=== PATIENT | female | born 1950 | race Caucasian/White ===

== ENCOUNTER 2021-04-07 14:15 | Inpatient (IN) | payer MEDICARE ==
[2021-04-07] VITALS (7 sets, daily range): BP systolic 113–127; BP diastolic 64–74
[~2021-04-07] VITALS: Ht 172.7 cm; Wt 78.9 kg
[2021-04-07 16:57] LABS: BASOPHILS 0.2 % (0.0-2.0); EOSINOPHILS 0.6 % (0.0-3.0); HEMATOCRIT 29.8 % (37.0-47.0); HEMOGLOBIN 10.2 gm/dL (12.0-15.0); LYMPHOCYTES 25.1 % (24.0-44.0); MCHC 34.2 g/dL (28.0-37.0); MCV 84.7 fL (80.0-100.0); MONOCYTES 7.2 % (1.0-8.0); PLATELET COUNT 433 thou/uL (150-400); POLYS 66.9 % (36.0-66.0); RBC 3.52 mil/uL (4.20-5.00); WBC 6.1 thou/uL (4.0-11.0)
[2021-04-07 17:10] LABS: CALCIUM 10.1 mg/dL (8.5-10.1); CREATININE 0.8 mg/dL (0.6-1.0); POTASSIUM 3.9 mmol/L (3.5-5.1)
[2021-04-07 17:15] LABS: ALBUMIN 3.3 g/dL (3.4-5.0); TOTAL BILIRUBIN 0.3 mg/dL (0.2-1.0); TOTAL PROTEIN 7.1 g/dL (6.4-8.2)
[2021-04-07 17:36] LABS: APTT 29.2 Seconds (24.5-32.8); INR 1.1; PROTIME 11.8 Seconds (9.3-11.4)
--- NOTE | 2021-04-07 23:11 | NUR ---
REPORT CALLED TO ISHAN PENG
--- NOTE | 2021-04-07 23:45 | NUR ---
Pt. admitted to the unit from the emergency room accompanied by staff. She is alert and oriented. Admission assessment and history is completed. Up to the bedside comode with assitance of one.
--- NOTE | 2021-04-08 01:39 | NUR ---
Pt. given morphine for c/o pain to the left lower extremity with no pain relief. This nurse informed patient that the Dr. could be called if no pain relief. She did not want that. Assessment done of the left lower leg, but patient refused for this nurse to measure the depth of the wounds. Dressing applied to left lower leg.
[2021-04-08] MEDS ORDERED: LOPRESSOR50 MG PO (03:42)
[2021-04-08] MEDS ORDERED: XARELTO20 MG PO (03:43)
[2021-04-08] MEDS ORDERED: LISINOPRIL-HCT1 EAC1 PO (03:45)
[2021-04-08] MEDS ORDERED: ZETIA10 MG PO (03:45)
[2021-04-08] MEDS ORDERED: ASPIRIN EC81 M1 PO (03:47)
[2021-04-08] MEDS ORDERED: FEMARA2.5 MG PO (03:49)
[2021-04-08 06:25] LABS: HEMATOCRIT 27.6 % (37.0-47.0); HEMOGLOBIN 9.1 gm/dL (12.0-15.0); MCH 28.6 pg (26.0-34.0); MCV 86.9 fL (80.0-100.0); RBC 3.18 mil/uL (4.20-5.00); RDW 15.5 % (10.5-14.5); WBC 6.8 thou/uL (4.0-11.0)
[2021-04-08 06:55] LABS: CALCIUM 8.7 mg/dL (8.5-10.1); CREATININE 0.7 mg/dL (0.6-1.0); POTASSIUM 3.5 mmol/L (3.5-5.1)
[2021-04-08 08:38] VITALS: BP 150/84
--- NOTE | 2021-04-08 11:23 | NUR ---
CARE TAKEN OVER FOR PATIENT AT 7AM, PATIENT RESTLESS IN BED UNABLE TO GET COMFORTABLE. VS WITHIN NORMAL LIMITS AND EDUCATED THAT NEXT PAIN MEDICATIONS WOULD BE AVAILABLE AT 930. NOT COMPLAINTS OR CONCERNS AT THIS TIME. FLUIDS D/C PER ORDER AND AFTER DOSE OF PAIN MEDICATION PATIENT IS NOW QUIETLY RESTING IN BED.
--- NOTE | 2021-04-08 12:10 | NUR ---
WOUND DRESSING CHANGED ON LEFT CALF. PATIENT TOLERATED EVENT PAIN 4/10 BEFORE BEGINING AND 6/10 AFTER. LIDOCAINE JELLY PLACED INSIDE THE WOUND BED, THEN XEROFORM, ABD AND KIRLEX BEFORE BEING SECURED WITH TAPE. PATIENT STATES SHE IS READY FOR PAIN MEDICATION WHEN IT IS AVAILABLE.
[2021-04-08 17:02] VITALS: BP 149/86
[2021-04-08 19:21] VITALS: BP 124/66
--- NOTE | 2021-04-09 03:01 | NUR ---
ASSUMED PT CARE THIS PM. PT IS ALERT AND ORIENTED X4. WOUND DRSG COMPLETED WHICH WAS WELL TOLERATED BY PT. PT WAS INFORMED OF BEING NPO AT MIDNIGHT AND VERBALIZED UNDERSTANDING. MEDS WERE GIVEN PER EMAR ORDERS. PT DID NOT VERBALIZE ANY CONCERNS. FALL PRECAUTIONS IN PLACE. WILL CONTINUE TO MONITOR.
[2021-04-09 07:12] LABS: GLYCOHEMOGLOBIN (HGB A1C) 5.4 % (4.8-5.6)
--- NOTE | 2021-04-09 07:45 | HC ---
[facility] [place] [address] CONSULTATION Name: SRINIVASA CUEVAS Room #: 439-P ADM IN M.R.#: [id number] Admission: 04/07/21 Attend Phys: Gerry Monterroso Discharge: Date of : 50 Report #: [id number] THIS REPORT FOR: cc: Esau Mcneil MD, Jeffrey W. MD Barry, Joseph W. MD ~ DATE OF SERVICE: 04/08/2021 INFECTIOUS DISEASE CONSULTATION ATTENDING PHYSICIAN: Dr. Monterroso. REASON FOR EVALUATION: Left lower extremity inflammatory eruption, complicated by wounds, likely skin and soft tissue infection in the setting of ischemic lower extremity. HISTORY OF PRESENT ILLNESS: Chart reviewed. The patient was examined. This is a 70-year-old woman with known history of vasculopathy including peripheral vascular disease, who has undergone previous procedures and developed a wound, she states roughly a year ago, left lower extremity; however, since 02/17 has significant increase in her pain and discomfort. Did undergo what sounds like a balloon angioplasty involving vessels in left lower extremity, [facility] ____ progression. She is admitted now for more definitive treatment including surgical debridement, IV antibiotics. She notes the pain is severe. She is not aware of systemic illness in terms of fevers, chills. Appetite has been diminished overall, but she attributed that to her age. Denies any pulmonary or gastrointestinal related complaints. She was empirically started on combination therapy with Zosyn and vancomycin. She is tentatively scheduled to undergo operative debridement today. ALLERGIES: Listed include CONTRAST DYE, IRON, SULFA. MEDICATIONS: Currently include Zosyn, famotidine, ipratropium/albuterol inhaler, acetaminophen, ondansetron, vancomycin, morphine as needed. PAST MEDICAL HISTORY: As described above, has known vasculopathy, peripheral vascular disease, coronary artery disease, previous stents. The patient has history of DVTs with PE, peripheral neuropathy and history of breast cancer with radiation. SOCIAL HISTORY: Nonsmoker, although had 50-jcyn-yums history of smoking. No illicit drug use. FAMILY HISTORY: Noncontributory. REVIEW OF SYSTEMS: Otherwise, as noted above. [facility] [address] [place] [address] CONSULTATION Name: SRINIVASA CUEVAS Room #: 439-P [facility] IN M.R.#: [id number] Admission: 04/07/21 Attend Phys: Gerry Monterroso Discharge: Date of : 50 Report #: [id number] PHYSICAL EXAMINATION: GENERAL: She appears ill. She is in moderate to marked distress secondary to the pain at this point. She is generally lucid and undernourished. VITAL SIGNS: Temperature 98.7, pulse 100, respirations 19, blood pressure 150/84. SKIN: Warm, dry, no rashes. HEENT: Normocephalic. Extraocular muscles intact. NECK: Supple. LUNGS: Diminished breath sounds. Few crackles at the bases. HEART: Regular. Does have a soft systolic murmur. ABDOMEN: Mildly distended, somewhat firm, nontender. EXTREMITIES: Left lower extremity, limited exam due to her severe pain. Clearly has ischemic type changes distally with the edema. There is a dressing over the proximal leg, site of the ulcer of the foot itself. There is no wound. GENITOURINARY AND RECTAL: Deferred. LABORATORY DATA: Wound culture in progress. Gram stain did show few gram-positive cocci and gram-negative rods, few white cells. CBC: White count of 6.8, H and H 9.1 and 27.6, platelets of 367. Electrolytes: Sodium 138, potassium 3.5, chloride 104, bicarbonate is 24, anion gap of 10, BUN and creatinine 15 and 0.7. Blood culture is sterile thus far. Sed rate of 68. Coronavirus testing was negative. Lactic acid 1.7. CRP of 55.9. Liver function tests, otherwise, unremarkable. Albumin of 3.3, total protein 7.1. ASSESSMENT AND PLAN: Left lower extremity chronic ulceration with acute worsening. This is likely multifactorial in etiology, certainly can exclude a complicating skin and soft tissue infection at this point. She is not overtly toxic, lack of systemic signs and symptoms ____ absence of sepsis at this point. Continue local wound care. We will follow postoperatively. Broad-spectrum antimicrobial therapy, presuming a polymicrobial etiology. ____ monitor expectantly. She is at risk for additional complications. <ELECTRONICALLY SIGNED> By: Issa Carr MD 04/09/21 0745 [id number] Issa Carr MD /nt
[2021-04-09 08:08] VITALS: BP 140/77
--- NOTE | 2021-04-09 11:26 | NUR ---
Assess due to RD consult received. Pt has surgical wound left leg which will require debridement. Upon visit, pt on phone but paused for brief conversation. States appetite is good. Usual wt 168 lb at home, bedscale wt showing 174 lb. ate 75-100% last evening. Presents low nutrition risk
--- NOTE | 2021-04-09 15:11 | NUR ---
PATIENT REFUSING TO ALLOW PACKING WITH XERFORM DURING DRESSING CHANGE. ALSO INFORMED ME THAT YESTERDAY AFTER MY SHIFT CHANGE PATIENT HAD TAKEN DOWN OWN DRESSING AND REMOVED IT BEFORE REWRAPPING IT WITH SAME KIRLEX BEFORE.
[2021-04-09 16:20] VITALS: BP 123/78
--- NOTE | 2021-04-09 17:50 | NUR ---
Met with patient. She resides at home with spouse in independnt home. She reports all needs on one level. She admitted from wound care clinic with wound in foot. Patient wants a praffo boot for home. She has [facility] at home. Patient was working until Feb. She reports she still has a job. Patient reports HH RN,PT,OT at home. will upate care.
[2021-04-09 19:53] VITALS: BP 121/67
--- NOTE | 2021-04-10 04:59 | NUR ---
RECEIVED CARE OF THIS PATIENT AT 1900. PATIENT ALERT AND ORIENTED X4. US OF LOWER EXT DONE. LLE SHOWED NO VASCUALR BLOOD FLOW. Len PEÑA NP WAS NOTIFIED BY [employer]. THIS NURSE NOTIFIED DR PALMA OF RESULTS. WANTED TO KNOW IF THE LLE WAS WARM OR COLD. WENT TO CHECK THE TEMP OF BOTH LEGS AND THEY WERE THE SAME. DR PALMA, Len PEÑA NP AND PACKAGE WRAPPER WAS NOTIFIED OF THE RESULTS. Len PEÑA NP AND PACKAGE WRAPPER WAS ADVISED OF WHAT DR PALMA SAID. DRESSING WAS CHANGED, HAD SMALL AMOUNT SS DRAINAGE. C.O PAIN, MED WAS GIVEN. SLEPT OFF AND ON THIS SHIFT.
[2021-04-10 07:40] VITALS: BP 134/68
--- NOTE | 2021-04-10 08:15 | NUR ---
ASSUMED CARE OF PATIENT THIS MORNING. WAS TOLD IN REPORT THAT DRESSING CHANGE OCCURED HS. RN INFORMED ME THAT SHE USED COBAN OVER KIRLEX TO "BETTER HOLD DRESSING IN PLACE." ASKED HER IF DRESSING ORDER HAD BEEN CHANGED AND AFTER REVIEWING ORDERS THE WOUND DRESSING IS STILL SAME, KIRLEX SECURED WITH TAPE. PLAN TO REDO DRESSING THIS AM DO TO PATIENT HAVING VASCULAR ISSUES IN THAT LEG AND COBAN BEING NOT IN ORDER. PATIENT RESTING COMFORTABLY WITH EYES CLOSED AND HAS BEEN NPO SINCE 0000. WILL ASK IF PO MEDICATIONS WILL NEED TO BE GIVEN THIS AM OR IF IT IS OKAY TO HOLD.
[2021-04-10 14:44] VITALS: BP 134/68
[2021-04-10 20:03] VITALS: BP 106/62
--- NOTE | 2021-04-11 07:31 | NUR ---
RECEIVED CARE OF THIS PATIENT AT 1900. PATIENT ALERT AND ORIENTED X4. UP WITH ASSIST, GATEBELT AND WALKER. HAS WOUND ON LLE WITHDRESSING THAT D/I. HAS BEEN NPO FOR A PROCEDURE THIS AM. C/O PAIN, MED GIVEN. SLEPT OFF AND ON DURING NIGHT.
[2021-04-11 08:16] VITALS: BP 124/64
[2021-04-11 15:45] VITALS: BP 107/66
--- NOTE | 2021-04-11 17:44 | NUR ---
Homer will be here throught weekend. Had sx today.
[2021-04-11 20:14] VITALS: BP 110/57
[2021-04-12 05:49] LABS: CALCIUM 8.8 mg/dL (8.5-10.1); CREATININE 0.8 mg/dL (0.6-1.0); POTASSIUM 4.2 mmol/L (3.5-5.1)
--- NOTE | 2021-04-12 06:27 | NUR ---
PATIENT AOX4 MAKES NEEDS KNOWN. PAIN CONTROLLED THIS SHIFT. PATIENT DRESSING ON LLE IS C/D/I. PATIENT ENCOURAGED TO ELEVATE BLE. FALL PRECAUTION IN PLACE. PATIENT IN BED ASLEEP AT THIS TIME BREATHING REGULAR AND UNLABOURED.
[2021-04-12 07:50] VITALS: BP 129/68
--- NOTE | 2021-04-12 09:06 | NUR ---
AFTER ASSUMING CARE OF PATIENT THIS AM PATIENT WAS VERY CONCERED WITH WHEN SHE WAS GOING TO BE RESTARTED ANTICOAGULATION THERAPY. SHE STATES "SHES CLOTTS VERY EASILY." NO COMPLAINTS OF PAIN AT THIS TIME. IV IN WORKING CONDITION WITH ANTIBOTICCS TRANSFUSING. PATIENT IS CONCERED IF SHE GOES HOME TODAY THAT HER PAIN MEDICATION THAT SHE HAS AT HOME WONT BE STRONG ENOUGH. ASKED IF SHE COULD MAYBE JUST RECIEVE A HIGHER DOSAGE OF HYDROCONE ON DISCHARGE.
[2021-04-12 16:32] VITALS: BP 134/68
--- NOTE | 2021-04-12 21:18 | O ---
[facility] [place] [address] [place] [address] OPERATIVE REPORT Name: SRINIVASA CUEVAS Room #: 439-P [facility] IN M.R.#: [id number] Admission: 04/07/21 Attend Phys: Gerry Monterroso Discharge: Date of : 50 Report #: [id number] THIS REPORT FOR: cc: Esau Mcneil MD, Jeffrey W. MD Soliman,Tee Gallardo MD [facility] ~ DATE OF SERVICE: 04/11/2021 PREOPERATIVE DIAGNOSIS: Nonhealing postsurgical wound of the left lower extremity after revascularization. POSTOPERATIVE DIAGNOSIS: Nonhealing postsurgical wound of the left lower extremity after revascularization. PROCEDURE PERFORMED: Excisional debridement of skin, subcutaneous tissue, muscle and fascia of a nonhealing postsurgical left lower extremity wound, ultimately measuring 23.5 x 6 cm in dimension (141 square centimeters). Preoperative wound measurements showed 2 separate discrete wounds, measuring 4 x 2 cm and 12 x 4 cm with a tunneled skin bridge between them and undermining circumferentially with necrosis. SURGEON: Tee Hall MD CHILD SUPPORT AGENT: None. ANESTHESIA: General endotracheal anesthesia. ESTIMATED BLOOD LOSS: 10 mL. COMPLICATIONS: None appreciated. SPECIMENS: All debrided tissue to pathology. INDICATIONS: The patient is a 70-year-old -[place] female with a history of undergoing a left lower extremity revascularization procedure and now shows evidence of a nonhealing postsurgical wound with significant purulent drainage and slough throughout. There was a skin bridge connecting 2 open wounds with significant tunneling under the skin bridge and with overt necrosis and slough from the bed of the wound, indication was for debridement today. DESCRIPTION OF PROCEDURE: After explaining the risks, benefits and alternatives of the procedure with the patient in detail and obtaining consent, the patient was brought to the operating room and placed supine on the operating room table. After conducting a thorough timeout procedure, verifying correct patient and procedure, the patient was given general endotracheal anesthesia. Once adequate anesthesia was obtained, her left lower extremity was circumferentially prepped [address] [address] OPERATIVE REPORT Name: MASONSRINIVASA Room #: 439-P [facility] IN M.R.#: [id number] Admission: 04/07/21 Attend Phys: Gerry Monterroso Discharge: Date of : 50 Report #: [id number] and draped in the standard surgical sterile fashion from toes to groin and was draped with an extremity drape and a stockinette for the foot. Electrocautery was now used to circumferentially debrided all nonviable skin, subcutaneous tissue, and muscle/fascia from the entirety of the wound and carried down to the bed of the wound. The contrib.comonix ultrasonic debridement tool was now used to remove all remaining nonviable tissue, slough and biofilm from the entirety of the wound. Hemostasis was obtained with electrocautery and manual pressure. If this did not appear appropriate for skin substitute application today and as such, the wound was then packed tightly with sterile saline soaked Kerlix gauze, dressed with 4 x 4's, ABDs and Medipore tape completing the procedure. At the end of the procedure, all instrument, needle and sponge counts were correct. The patient tolerated the procedure without incident, was awakened in the operating room and transitioned to the recovery room in stable condition with no apparent complications. <ELECTRONICALLY SIGNED> By: Tee Hall MD, FACS 04/12/21 2118 [id number] Tee Hall MD, FACS /nt
--- NOTE | 2021-04-12 21:18 | HC ---
[facility] [place] [address] CONSULTATION Name: SRINIVASA CUEVAS Room #: 439-P [facility] IN M.R.#: [id number] Admission: 04/07/21 Attend Phys: Gerry Monterroso Discharge: Date of : 50 Report #: [id number] THIS REPORT FOR: cc: Esau Mcneil MD, Jeffrey W. MD Soliman,Tee Gallardo MD [facility] ~ DATE OF SERVICE: 04/07/2021 GENERAL SURGERY CONSULT REFERRING PHYSICIAN: Dr. Alexis Zhu. REASON FOR CONSULTATION: Nonhealing left lower extremity postsurgical wound. HISTORY OF PRESENT ILLNESS: The patient is a 70-year-old -[place] female who underwent a left lower extremity revascularization procedure by Dr. Emiliano Mcneil one year ago. The patient has had ongoing nonhealing wounds to the left lower extremity with recurrent infection, DVTs and is now on chronic anticoagulation. The patient was seeing Dr. Zhu in the office and she was so exquisitely tender that she has been admitted for ongoing wound care and full evaluation. As she has extensive nonhealing wounds with slough necrosis and periwound erythema, I have been asked to evaluate for debridement. PAST MEDICAL HISTORY: DVTs, PEs, left lower extremity wound, neuropathy, breast cancer, peripheral vascular disease and coronary artery disease, status post stenting. HOME MEDICATIONS: Metoprolol, Xarelto, lisinopril, hydrochlorothiazide, Zetia, aspirin and Femara. ALLERGIES: IV CONTRAST DYE, IRON, AND SULFA. SOCIAL HISTORY: Denies alcohol, tobacco or illicit drugs. FAMILY HISTORY: Reviewed and noncontributory. REVIEW OF SYSTEMS: GENERAL. The patient denies nocturnal fevers or chills. HEENT: No change in vision, change in hearing. NECK: No swelling or difficulty swallowing. HEART: No chest pain, palpitations. LUNGS: No cough or shortness of breath. GASTROINTESTINAL: No nausea, no vomiting. GENITOURINARY: No dysuria, hematuria. ENDOCRINE: No polyuria, polydipsia. HEMATOLOGIC: No history of bleeding or easy bruising. [facility] [address] [place] [address] CONSULTATION Name: MASONSRINIVASA Room #: 439-P [facility] IN M.R.#: [id number] Admission: 04/07/21 Attend Phys: Gerry Monterroso Discharge: Date of : 50 Report #: [id number] EXTREMITIES: No history of weakness or limited range of motion. NEUROLOGIC: No history of syncope or near syncopal episodes. PSYCHIATRIC: No history of anxiety or depression. SKIN AND INTEGUMENT: Significant history of longstanding nonhealing left lower extremity wounds. PHYSICAL EXAMINATION: VITAL SIGNS: Temperature 36.5, pulse 75, respirations 18, blood pressure 113/64. GENERAL: Alert, no acute distress. HEENT: Normocephalic, atraumatic. Pupils equal, round, reactive to light. NECK: Supple, without lymphadenopathy. Trachea midline. HEART: Regular rate and rhythm. LUNGS: Clear to auscultation bilaterally. ABDOMEN: Soft, nontender, nondistended, positive bowel sounds. GENITOURINARY: Normal external female genitalia. EXTREMITIES: No clubbing, cyanosis or edema. NEUROLOGICAL: Cranial nerves II-XII are grossly intact. PSYCHIATRIC: Normal mood and affect. SKIN AND INTEGUMENT: Two areas of nonhealing wound to the left lower extremity. They were both opened with slough, fibrinous exudate and necrosis. I was unable to see if the skin bridge has tunneling underneath it as the patient has exquisite tenderness. LABORATORY DATA: CBC shows white blood cell count 6.1 thousand, hemoglobin 10.2, platelets 433,000. Creatinine 0.8, albumin is 3.3. INR 1.1. ASSESSMENT AND PLAN: A 70-year-old -[place] female with a 1-year history of a nonhealing left lower extremity wound after undergoing revascularization procedure, who is now in need of debridement and Interventional Radiology assistance for possible angiogram and/or stenting. At this time, I recommend holding her Xarelto. As she has been on this up to today, we will not proceed to the operating room for debridement until at least 72 hours have passed to limit any bleeding potential. In the meantime, I recommend Interventional Radiology with Dr. Peng for assessment of the possibility of any intervention as needed per his recommendation. For now, continue ongoing local wound care, antibiotics per Infectious Disease and optimizing nutritional status. I sincerely appreciate this consult. We will follow along and leave any further recommendations in the patient's chart as appropriate. <ELECTRONICALLY SIGNED> By: Tee Hall MD, FACS 04/12/21 2118 [id number] Tee Hall MD, FACS /nt
[2021-04-13 05:19] LABS: HEMATOCRIT 27.6 % (37.0-47.0); HEMOGLOBIN 8.9 gm/dL (12.0-15.0); MCH 27.7 pg (26.0-34.0); MCHC 32.1 g/dL (28.0-37.0); MCV 86.2 fL (80.0-100.0); RBC 3.2 mil/uL (4.20-5.00); WBC 6.6 thou/uL (4.0-11.0)
[2021-04-13 05:33] LABS: ALBUMIN 2.2 g/dL (3.4-5.0); CALCIUM 8.4 mg/dL (8.5-10.1); CREATININE 0.8 mg/dL (0.6-1.0); PHOSPHORUS 3.3 mg/dL (2.5-4.9); POTASSIUM 3.3 mmol/L (3.5-5.1)
[2021-04-13 07:50] VITALS: BP 141/78
--- NOTE | 2021-04-13 08:21 | NUR ---
PT LYING IN BED. VOIDING PER BEDPAN. OXY IR PROVIDING PAIN RELIEF. RESTING COMFORTABLY. NO NEEDS VOICED. CALL LIGHT WITHIN REACH. FREQUENT OBSERVTION.
[2021-04-13 16:55] VITALS: BP 131/72
[2021-04-13 20:10] VITALS: BP 150/73
[2021-04-14 07:58] VITALS: BP 140/89
--- NOTE | 2021-04-14 08:27 | NUR ---
PT LYING IN BED. VOIDING PER BEDPAN. OXY IR PROVIDING PAIN RELIEF. RESTING COMFORTABLY. NO NEEDS VOICED. CALL LIGHT WITHIN REACH. FREQUENT OBSERVATION.
--- NOTE | 2021-04-14 09:06 | NUR ---
ASSUMED CARE OF PATIENT THIS AM. PATIENT TRANSFERED TO CHAIR WITH WALKER SETTING UP FOR BREAKFAST. PT ASKED ABOUT IF POSSIBLY BEING ABLE TO GO HOME WITH WOUNDVAC FOR HER LEG. NO C/O PAIN AT THIS TIME AND NOTHING IS NEEDED.
[2021-04-14] MEDS ORDERED: CEFDINIR300 MG PO (12:26)
[2021-04-14] MEDS ORDERED: LINEZOLID600 MG PO (12:26)
[2021-04-14] MEDS ORDERED: ELIQUIS5 MG PO (12:27)
[2021-04-14] MEDS ORDERED: GABAPENTIN 100100 MG PO (12:27)
[2021-04-14 13:00] VITALS: BP 134/68
--- NOTE | 2021-04-14 16:56 | NUR ---
Patient to dc home with care. [facility]axed orders to [facility]. Updated [facility] patient will need wound vac. Patient to f/u with outpatient wound clinic and they will order. No further needs
== END 2021-04-14 13:30 | disposition home health service (06) | DRG 579 ==
LOC: ER 14:15 → EROBS 18:30 → 4S 18:30 → 4W 04-10 04:48 → 4S 04-10 04:59
PROVIDERS: Emergency Medicine; Nurse Practitioner Family; Specialist; ADMIT Hospitalist; ATTEND Hospitalist
DX: S81.802A Unspecified open wound, left lower leg, initial encounter (principal); E43 Unspecified severe protein-calorie malnutrition; L97.929 Non-pressure chronic ulcer of unspecified part of left lower leg with unspecified severity; I73.9 Peripheral vascular disease, unspecified; Z20.822 Contact with and (suspected) exposure to COVID-19; I25.10 Atherosclerotic heart disease of native coronary artery without angina pectoris; R73.9 Hyperglycemia, unspecified; R53.81 Other malaise; D63.8 Anemia in other chronic diseases classified elsewhere; B96.4 Proteus (mirabilis) (morganii) as the cause of diseases classified elsewhere; B95.2 Enterococcus as the cause of diseases classified elsewhere; G62.9 Polyneuropathy, unspecified; B95.61 Methicillin susceptible Staphylococcus aureus infection as the cause of diseases classified elsewhere; X58.XXXA Exposure to other specified factors, initial encounter; Z95.5 Presence of coronary angioplasty implant and graft; Z88.2 Allergy status to sulfonamides; Z88.8 Allergy status to other drugs, medicaments and biological substances; Z91.041 Radiographic dye allergy status; Z86.718 Personal history of other venous thrombosis and embolism; Z86.711 Personal history of pulmonary embolism; Z85.3 Personal history of malignant neoplasm of breast; Z92.3 Personal history of irradiation; Z80.41 Family history of malignant neoplasm of ovary; Z80.8 Family history of malignant neoplasm of other organs or systems; Z80.1 Family history of malignant neoplasm of trachea, bronchus and lung; Z95.820 Peripheral vascular angioplasty status with implants and grafts; Y93.89 Activity, other specified; Y92.89 Other specified places as the place of occurrence of the external cause; Y99.8 Other external cause status; Z68.26 Body mass index [BMI] 26.0-26.9, adult
CPT/HCPCS: 10195; 50010

== ENCOUNTER → 2021-04-07 | Outpatient (CLI) | payer OTHER ==
[~2021-04-07] MED LIST: ASPIRIN EC81 M1 PO; FEMARA2.5 MG PO; LISINOPRIL-HCT1 EAC1 PO; LOPRESSOR50 MG PO; XARELTO20 MG PO; ZETIA10 MG PO
== END ==
LOC: HYPER 09:05
PROVIDERS: ATTEND Emergency Medicine
DX: T81.89XA Other complications of procedures, not elsewhere classified, initial encounter (principal); I70.248 Atherosclerosis of native arteries of left leg with ulceration of other part of lower leg; L97.822 Non-pressure chronic ulcer of other part of left lower leg with fat layer exposed; I97.638 Postprocedural hematoma of a circulatory system organ or structure following other circulatory system procedure; F17.290 Nicotine dependence, other tobacco product, uncomplicated; M19.90 Unspecified osteoarthritis, unspecified site; Z48.812 Encounter for surgical aftercare following surgery on the circulatory system; Z85.3 Personal history of malignant neoplasm of breast; Y92.238 Other place in hospital as the place of occurrence of the external cause; Y83.8 Other surgical procedures as the cause of abnormal reaction of the patient, or of later complication, without mention of misadventure at the time of the procedure

== ENCOUNTER → 2021-04-21 | Outpatient (CLI) | payer MEDICARE ==
[~2021-04-21] MED LIST changes: +CEFDINIR300 MG PO; +ELIQUIS5 MG PO; +GABAPENTIN 100100 MG PO; +LINEZOLID600 MG PO
== END ==
LOC: HYPER 08:15
PROVIDERS: ATTEND Emergency Medicine
DX: T81.89XD Other complications of procedures, not elsewhere classified, subsequent encounter (principal); I70.248 Atherosclerosis of native arteries of left leg with ulceration of other part of lower leg; L97.822 Non-pressure chronic ulcer of other part of left lower leg with fat layer exposed; I97.638 Postprocedural hematoma of a circulatory system organ or structure following other circulatory system procedure; M19.90 Unspecified osteoarthritis, unspecified site; F17.290 Nicotine dependence, other tobacco product, uncomplicated; Z85.3 Personal history of malignant neoplasm of breast; Z79.01 Long term (current) use of anticoagulants; Z79.899 Other long term (current) drug therapy; Z95.820 Peripheral vascular angioplasty status with implants and grafts; Y83.8 Other surgical procedures as the cause of abnormal reaction of the patient, or of later complication, without mention of misadventure at the time of the procedure

== ENCOUNTER → 2021-04-29 | Outpatient (CLI) | payer MEDICARE | LOC: HYPER 07:59 | PROVIDERS: ATTEND Emergency Medicine | DX: T81.89XD Other complications of procedures, not elsewhere classified, subsequent encounter (principal); I70.248 Atherosclerosis of native arteries of left leg with ulceration of other part of lower leg; L97.822 Non-pressure chronic ulcer of other part of left lower leg with fat layer exposed; I97.638 Postprocedural hematoma of a circulatory system organ or structure following other circulatory system procedure; M19.90 Unspecified osteoarthritis, unspecified site; F17.290 Nicotine dependence, other tobacco product, uncomplicated; Z85.3 Personal history of malignant neoplasm of breast; Z79.01 Long term (current) use of anticoagulants; Z95.820 Peripheral vascular angioplasty status with implants and grafts; Y83.8 Other surgical procedures as the cause of abnormal reaction of the patient, or of later complication, without mention of misadventure at the time of the procedure ==

== ENCOUNTER → 2021-05-07 | Outpatient (CLI) | payer MEDICARE | LOC: HYPER 10:55 | PROVIDERS: ATTEND Emergency Medicine | DX: T81.89XD Other complications of procedures, not elsewhere classified, subsequent encounter (principal); I70.248 Atherosclerosis of native arteries of left leg with ulceration of other part of lower leg; L97.822 Non-pressure chronic ulcer of other part of left lower leg with fat layer exposed; I97.638 Postprocedural hematoma of a circulatory system organ or structure following other circulatory system procedure; M19.90 Unspecified osteoarthritis, unspecified site; F17.290 Nicotine dependence, other tobacco product, uncomplicated; Z95.820 Peripheral vascular angioplasty status with implants and grafts; Z98.890 Other specified postprocedural states; Z85.3 Personal history of malignant neoplasm of breast; Z79.01 Long term (current) use of anticoagulants; Z79.899 Other long term (current) drug therapy; Y83.8 Other surgical procedures as the cause of abnormal reaction of the patient, or of later complication, without mention of misadventure at the time of the procedure ==